=== PATIENT | male | born 1960 | race Caucasian/White ===

== ENCOUNTER 2021-02-15 12:48 | Emergency (ER) | payer BC, SELFPAY ==
[2021-02-15 12:49] VITALS: BP 147/67; PULSE 89; RESP 16; TEMP 37; O2SAT 100; BMI 32.7
--- NOTE | 2021-02-15 13:20 | HMH.EDGENADL ---
ED Disposition Clinical Impression: COVID-19 virus infection Disposition: Home, Self-Care Condition on Discharge: Good Instructions: DI for COVID-19 (Suspected or Confirmed ) Additional Instructions: COVID-19 Isolation: Isolate yourself for a MINIMUM of 10 days from onset of symptoms: What to do: Monitor your symptoms. If you have an emergency warning sign (including trouble breathing), seek emergency medical care immediately. Stay in a separate room from other household members, if possible. Use a separate bathroom, if possible. Avoid contact with other members of the household and pets. Don?t share personal household items, like cups, towels, and utensils. Wear a mask when around other people if able. You can be around others AFTER: 10 days since symptoms first appeared AND 24 hours with no fever without the use of fever-reducing medications AND Other symptoms of COVID-19 are improving Do not return to work until your Covid symptoms are sufficiently improving. Referrals: Kalpana Bishop [Primary Care Provider] - - Critical Care Critical Care Time: No Attestation: On , the high probability of a clinically significant, sudden or life threatening deterioration of the following system(s) required my full and direct attention, intervention and personal management. The time I documented below is in addition to time spent performing reported procedures but includes the following listed in this critical care notation. Medical Decision Making - Ke Inquiry Pt receiving controlled substance: No Vital Signs: 02/15/21 12:49 Temperature 98.6 F Temperature Source Oral Pulse Rate [Right] 89 Respiratory Rate 16 Blood Pressure [Right Arm] 147/67 H Blood Pressure Mean [Right Arm] 93 Blood Pressure Source [Right Arm] Automatic Cuff Blood Pressure Position [Right Arm] Sitting 02 Sat by Pulse Oximetry 100 Oxygen Delivery Method Room Air Medical Decision Narrative: Discussed work-up. At this time he declines blood work and chest x-ray. I discussed with him CDC recommendations for isolation which are a minimum of 10 days, but also no fever for 24 hours without antipyretics and improvement in Covid symptoms. He has not had improvement in his Covid symptoms and therefore is not ready to be released from isolation. Advised him to stay off work until his symptoms have improved sufficiently. General Adult HPI - General Chief complaint: Upper Respiratory Infection Stated complaint: covid pos, sore throat Time Seen by Provider: 02/15/21 13:20 Mode of Arrival: Ambulatory Limitations: No Limitations Description of Symptoms (Recalled from ER Triage Doc. by RN): PT advises he was diagnosed with covid on 02/06 and tried to go back to work yesterday but still feels bad and has a sore throat - History of Present Illness HPI narrative: States that he has Covid and complains of fatigue. He was diagnosed with Covid on 02/06/2021 after being symptomatic for about 4 days. He has had fevers, cough which she feels is productive but he does not expectorate any sputum because he says it does not make it all the way up to his mouth to be spit out. He feels very fatigued. He has a slight sore throat. He denies shortness of breath. He has been checking his pulse ox at home which has been good except for 1 night about a week ago it was in the 80s but was never able to repeat that reading. He has had no treatment for Covid. He was not vaccinated. He says that he isolated for they recommended 10 days and try to go back to work yesterday. He made it through the shift yesterday but today he could not make it through the shift due to fatigue. He does not feel ready to go back to work. His last fever was a few days ago, 99 degrees. - Related Data Home Medications Medication Instructions Recorded Confirmed ALPRAZolam [Xanax 1mg tab] 1 mg PO BID 04/25/19 04/25/19 Sertraline HCl [Zoloft 100mg 200 mg PO DAILY
[2021-02-15 13:44] VITALS: BP 144/70; PULSE 70; RESP 16; TEMP 36.8; O2SAT 98
== END 2021-02-15 13:50 | disposition home or self-care (01) ==
PROVIDERS: Emergency Provider Emergency Medicine; PCP Family Medicine
DX: U07.1 COVID-19 (principal); R53.83 Other fatigue; R05.8 Other specified cough; I10 Essential (primary) hypertension
CPT/HCPCS: 99281

== ENCOUNTER 2025-01-10 11:02 | Day surgery (SDC) | payer BC, SELFPAY ==
--- NOTE | 2025-01-07 15:40 | P.HP_ITS ---
History of Present Illness *Admission Date: 01/10/25 *History of present illness: Mr. Ahumada is a 64-year-old gentleman who is here for initial screening colonoscopy. The examination is deemed medically necessary for screening colonoscopy. The patient has been seen, interviewed and examined prior to the procedure by both myself and the anesthesia provider. [facility] Disclaimer: The information contained in this section may have been updated after the patient was seen, as this information can be updated by other users. Medical History Anxiety Hypertension Surgical History Hx of cholecystectomy Hx of vasectomy History of carpal tunnel release Hx of knee surgery Social History (Updated 01/10/25 @ 11:40 by David Kilgore CRNA) Smoking Status: Never smoker alcohol intake: never substance use type: denies use current occupational status: other Travel in the last 8 weeks?: None Have you lived/traveled outside [place] in past 30 days?: No Contact w/someone who lives/traveled outside [place] past 30 days?: No Exposure to someone with infectious disease in past 14 days?: No Do you have a fever (greater than 100.4 F or 38 C)?: No Have you tested positive for COVID-19?: No Exposed to someone with COVID-19 in past 14 days?: No Do you have a sore throat?: No Do you have a cough?: No Do you have any weakness?: No Are you experiencing any nausea/vomitting?: No Do you have any diarrhea?: No Are you experiencing any unusual bleeding?: No Do you have any muscle aches/pain?: No Do you have any abdominal pain?: No Are you experiencing loss of taste or smell?: No Other Medical History Have you received the Flu Vaccine for this season: No Have you received the Pneumonia Vaccine: No Review of Systems Review of Systems Review of systems (narrative): Negative *Cardiovascular Comments: Negative *Gastrointestinal Comments: Negative *Genitourinary Comments: Negative *Musculoskeletal Comments: Negative *Neurologic Comments: Negative Meds Home Medications and Allergies Home Medications ?Medication ?Instructions ?Recorded ?Confirmed ?Type alprazolam 1 mg tablet 1 mg PO BID Anxiety 04/25/19 01/05/25 History atenolol 25 mg tablet 25 mg PO DAILY htn 04/25/19 01/05/25 History lisinopril 20 mg tablet 20 mg PO DAILY htn 04/25/19 01/05/25 History sertraline 100 mg tablet 200 mg PO DAILY Depression 0 04/25/19 01/05/25 History New Prescriptions to Start Prescriptions: Allergies Allergy/AdvReac Type Severity Reaction Status Date / Time No Known Allergies Allergy Verified 02/15/21 13:04 Exam *Routine HEENT Exam Head: Present normocephalic Eye: Present EOMI and PERRL ENT: Present mucous membranes moist *Routine Neck Exam Neck: Present supple *Routine Respiratory Exam Respiratory: Present CTA bilaterally *Routine Cardiovascular Exam Cardiovascular: Present RRR *Routine Abdominal Exam Abdominal: Present soft and normoactive bowel sounds; Absent tenderness *Routine Rectal Exam Rectal:: deferred *Routine Genitalia Exam Genitalia:: deferred *Routine Extremities Exam Extremities: Absent cyanosis, clubbing or edema *Routine Skin Exam Skin: Present warm; Absent rash *Routine Neurological Exam Neurological: Present alert and oriented X3 Assessment and Plan *Assessment and plan (1) Screening for colon cancer: Status: Acute Category: Medical Code(s): Z12.11 - Encounter for screening for malignant neoplasm of colon Plan A/P: 1. Screening for colon cancer is the preprocedural diagnosis. The patient will be anesthetized/sedated using MAC sedation. The patient has been seen and examined. Cardiac and lung assessment prior to the examination is stable. Proceed with planned screening colonoscopy.
--- NOTE | 2025-01-10 07:04 | P.PCN_ITS ---
[facility] Procedure Note Date: 01/10/25 Time: 12:43 Procedure Note:: Colonoscopy Procedure Report: Colonoscopy with cold snare polypectomy Endoscopist: Won Samuels II, MD Referring physician: Kalpana Bishop MD Date of Procedure: January 10, 2025 Equipment: Olympus [id number] adult colonoscope Sedation: MAC sedation Indication: Mr. Ahumada is a 64-year-old gentleman who is here for initial screening colonoscopy. The patient reports no abdominal pain, weight loss, change in his bowel habits or rectal bleeding. He has had regular Cologuard testing that was negative and his last was 2 or 3 years ago. He does state that his maternal uncle may have had colon cancer in his 60s or 70s. The examination is deemed medically necessary for screening colonoscopy. Procedure: Prior to the procedure, a history and physical exam was performed, and patient's medications and allergies were reviewed. The risks, benefits and alternatives of the sedation and procedure were discussed with the patient. All questions were answered and informed consent was obtained. The patient was brought to the procedure room. Patient identification and proposed procedure were verified by the physician and the nurse. The patient was placed in a left lateral decubitus position and the scope was passed under direct vision. Throughout the procedure, the patient's blood pressure, pulse, and oxygen saturations were monitored continuously. The colonoscopy was accomplished without difficulty. T he patient tolerated the procedure well. Findings: On digital rectal examination there was normal rectal tone. There were small external tags. The prostate was 2+, smooth, soft, symmetric without no dules. The colonoscope was introduced through the anal canal to the rectum and advanced to the cecum. The ileocecal valve and appendiceal orifice were identified. The scope was advanced a short distance into the ileum which appeared grossly normal. The scope was then withdrawn into the colon. There were 4 diminutive polyps (cecum x 1 (3 mm), ascending x 2 (3 and 4 mm) and transverse x 1 (4 mm)). These were all removed via cold snare polypectomy. The remaining cecum, ascending, transverse, descending, sigmoid and rectum were grossly normal. There were no other mucosal abnormalities identified. Upon retroflexion within the rectum there were grade 1-2 internal hemorrhoids. The preparation was excellent throughout with [place] Preparation Score of 9. The cecal time was 12 minutes. Impression: 1. Diminutive colonic polyps x 4 Plan: I will follow-up the polyp histology and recommend repeat screening/surveillance colonoscopy again in 5 to 7 years based upon the pathology.
[2025-01-10 11:11] VITALS: BMI 35.4
[2025-01-10 11:20] VITALS: BP 160/76; PULSE 78; RESP 18; TEMP 36.4; O2SAT 96
[2025-01-10] MEDS: LACTATED RINGERS 1000ML 1,000 ML 30 ML IV (11:35)
--- NOTE | 2025-01-10 11:39 | EXP.ANES.CKL ---
[facility] Disclaimer: The information contained in this section may have been updated after the patient was seen, as this information can be updated by other users. Medical History Anxiety Hypertension Surgical History Hx of cholecystectomy Hx of vasectomy History of carpal tunnel release Hx of knee surgery Social History Smoking Status: Never smoker alcohol intake: never substance use type: denies use current occupational status: other Travel in the last 8 weeks?: None [facility] Anesthesia Checklist Patient Identification Patient Identification: Arm Band and Verbal (Name & ) Structural Data Admitted From: Home Planned Operative Procedure/s: Colonoscopy Consent for Planned Operative Procedure(s) Verified: Yes Verified Documents: Surgical Consent NPO Status Verified Time NPO: 00:00 Chart Verification Results Verified: None Additional verifications Anesthesia Reactions: No Airway Assessment Mallampati Score:: Class II C-Spine Mobility Assessed: Yes TMJ Mobility Assessed: Yes Dentition: Good Dentition Neurological Assessment Level of Consciousness: Awake, Alert and Appropriate Hx Seizures: No Numbness or tingling in extremities: No Anesthesia Plan Anesthesia Risk discussed: Yes Anesthesia Plan: Verified ASA Class: II Anesthesia Type: MAC
[2025-01-10 12:44] VITALS: BP 116/71; PULSE 69; RESP 16; TEMP 36.1; O2SAT 91
[2025-01-10 12:59] VITALS: BP 110/73; PULSE 65; RESP 18; O2SAT 92
[2025-01-10 13:13] VITALS: BP 128/64; PULSE 66; RESP 18; O2SAT 96
== END 2025-01-10 13:15 | disposition home or self-care (01) ==
PROVIDERS: PCP Family Medicine; Visit Provider Internal Medicine Gastroenterology
PROC: 0DJD8ZZ Inspection of Lower Intestinal Tract, Via Natural or Artificial Opening Endoscopic (ICD-10-PCS; CPT 45378; principal; 2025-01-10 12:30)
DX: Z12.11 Encounter for screening for malignant neoplasm of colon (principal); D12.2 Benign neoplasm of ascending colon; K63.5 Polyp of colon; K64.0 First degree hemorrhoids; K64.1 Second degree hemorrhoids; I10 Essential (primary) hypertension; Z80.0 Family history of malignant neoplasm of digestive organs
CPT/HCPCS: 45385; J2003; J2704; J7120